=== PATIENT | female | born 1930 | race African-American/Black ===

== ENCOUNTER 2016-12-08 14:37 | Inpatient (IN) | payer MEDICARE, MEDICAID ==
[~2016-12-08] VITALS: Ht 167.6 cm; Wt 93.0 kg
[~2016-12-08 14:37] MED LIST: ASPI-1159 PO; ATOR10TA69 PO; DONE5TAB33 PO; FURO20TA4 PO; GABA-529 PO; HYDR-4133 PO; LEVO88TA7 PO; METO-385 PO; NITR100C11 PO; POTA10CA42 PO; TAMS0.4C31 PO
[2016-12-08] MEDS ORDERED: LEVOFLOXACIN 750MG PREMIX 150 ML IV ONE (15:15)
[2016-12-08 15:42] LABS: BASOPHILS % 0.2 % (0.0-2.0); EOSINOPHILS % 0.5 % (0.0-5.0); HEMATOCRIT. 36.8 % (36.0-48.0); HEMOGLOBIN. 12.7 g/dL (12.0-16.0); LYMPHOCYTES % 11.4 % (20.0-50.0); MEAN CORPUSCULAR HEMOGLOBIN 31.3 pg (28.0-32.0); MEAN CORPUSCULAR VOLUME 90.9 fL (81.0-99.0); MEAN PLATELET VOLUME 7.4 fl (7.4-10.4); MONOCYTES % 4.5 % (2.0-8.0); NEUTROPHILS % 83.4 % (40.0-76.0); PLATELET 236 x1000/uL (130-400); RED BLOOD CELL COUNT 4.05 mill/uL (4.2-5.4); RED CELL DISTRIBUTION WIDTH 14.9 % (11.6-14.6)
[2016-12-08 15:44] LABS: BG BASE EXCESS 4.9 mmol/L (-2.0-2.0); BG CARBOXYHEMOGLOBIN 0.8 % (0.5-1.5); BG DEOXYHEMOGLOBIN 1.9 % (0.0-5.0); BG FRACTION INSPIRED OXYGEN 32; BG METHEMOGLOBIN 0.2 % (0.0-1.5); BG OXYGEN SATURATION 98.1 % (92.0-98.5); BG OXYHEMOGLOBIN 97.1 % (94.0-97.0); BG PCO2 40.7 mmHg (35.0-45.0); BG PO2 115.1 mmHg (75.0-100.0); BG SAMPLE SITE RIGHT RADIAL; BG TOTAL HEMOGLOBIN 13.4 g/dL (12.0-18.0); BG VENT MODE NASAL CANNULA
[2016-12-08 15:46] LABS: INR 1.1; PROTHROMBIN TIME 10.9 sec
[2016-12-08 15:47] LABS: CHLORIDE 99 mEq/L (98-107)
[2016-12-08 15:52] LABS: CARBON DIOXIDE 31 mEq/L (21-32)
[2016-12-08 15:59] LABS: TROPONIN I < 0.02 ng/mL (0.00-0.04)
[2016-12-08 16:11] LABS: CLARITY URINE CLEAR (CLEAR); COLOR URINE YELLOW (YELLOW); KETONES URINE NEGATIVE (NEGATIVE); LEUKOCYTE ESTERASE URINE NEGATIVE (NEGATIVE); NITRITE URINE NEGATIVE (NEGATIVE); OCCULT BLOOD URINE NEGATIVE (NEGATIVE); PROTEIN URINE NEGATIVE (NEGATIVE); SPECIFIC GRAVITY URINE 1.014 (1.005-1.030); UROBILINOGEN URINE 0.2 E.U./dL (0.2-1.0)
[2016-12-08] MEDS ORDERED: FUROSEMIDE 40MG/4ML VIAL IVP ONE (18:45)
[2016-12-08] MEDS ORDERED: GUAIFENESIN 200MG/10ML SUGAR FREE UDC PO PRN (21:00)
[2016-12-08] MEDS ORDERED: IPRATROPIUM/ALBUTEROL 0.5-3(2.5)MG/3ML NEB INH PRN (21:00)
[2016-12-08] MEDS ORDERED: DOCUSATE SODIUM 100MG CAPSULE PO PRN (21:00)
[2016-12-08] MEDS ORDERED: ONDANSETRON HCL 4MG/2ML VIAL IV PRN (21:00)
[2016-12-08] MEDS ORDERED: ACETAMINOPHEN 650MG SUPP PR PRN (21:00)
[2016-12-09 07:28] LABS: CARBON DIOXIDE 33 mEq/L (21-32); CHLORIDE 100 mEq/L (98-107)
[2016-12-09 08:09] LABS: BASOPHILS % 0.3 % (0.0-2.0); EOSINOPHILS % 1.1 % (0.0-5.0); HEMATOCRIT. 37.5 % (36.0-48.0); HEMOGLOBIN. 12.7 g/dL (12.0-16.0); LYMPHOCYTES % 24.1 % (20.0-50.0); MEAN CORPUSCULAR HEMOGLOBIN 31.1 pg (28.0-32.0); MEAN CORPUSCULAR VOLUME 91.5 fL (81.0-99.0); MEAN PLATELET VOLUME 7.6 fl (7.4-10.4); MONOCYTES % 7.5 % (2.0-8.0); PLATELET 193 x1000/uL (130-400); RED CELL DISTRIBUTION WIDTH 14.9 % (11.6-14.6)
[2016-12-09 10:05] LABS: T4 FREE 1.37 ng/dL (0.76-1.46)
[2016-12-09] MEDS: POTASSIUM CHLORIDE 20MEQ TABLET SR PO SCH (10:48)
[2016-12-09] MEDS: FUROSEMIDE 20MG/2ML VIAL IVP SCH (10:48)
[2016-12-09] MEDS: DONEPEZIL HCL 5MG TABLET PO SCH (10:48)
[2016-12-09] MEDS: METOPROLOL TARTRATE 25MG TABLET PO SCH (10:49)
[2016-12-09] MEDS ORDERED: POTASSIUM CHLORIDE INJ 40 MEQ in DEXT 5% WATER 250 ML IV SCH (11:00)
[2016-12-09 15:47] LABS: CREATINE KINASE 129 IU/L (26-192); CREATINE KINASE MB FRACTION 0.6 ng/mL (0.5-3.6); TROPONIN I < 0.02 ng/mL (0.00-0.04)
[2016-12-09] MEDS: LEVOTHYROXINE SODIUM 88MCG TABLET PO SCH (15:48)
[2016-12-09] MEDS: HYDRALAZINE HCL 10MG TABLET PO SCH ×2 (15:49→21:35)
[2016-12-09] MEDS ORDERED: LEVOFLOXACIN 500MG PREMIX 100 ML IV SCH (21:00)
[2016-12-09] MEDS: LEVOFLOXACIN 500MG PREMIX 100 ML IV SCH (21:13)
[2016-12-09 23:09] LABS: CREATINE KINASE 130 IU/L (26-192); CREATINE KINASE MB FRACTION 1.2 ng/mL (0.5-3.6); TROPONIN I < 0.02 ng/mL (0.00-0.04)
[2016-12-10] MEDS: HYDRALAZINE HCL 10MG TABLET PO SCH ×3 (05:05→20:59)
[2016-12-10 06:25] LABS: CARBON DIOXIDE 30 mEq/L (21-32); CHLORIDE 102 mEq/L (98-107); CREATINE KINASE 128 IU/L (26-192); PHOSPHORUS 2.4 mg/dL (2.5-4.9)
[2016-12-10 06:27] LABS: CREATINE KINASE MB FRACTION 1.4 ng/mL (0.5-3.6); TROPONIN I < 0.02 ng/mL (0.00-0.04)
[2016-12-10 06:44] LABS: BASOPHILS % 0.3 % (0.0-2.0); EOSINOPHILS % 1.8 % (0.0-5.0); HEMATOCRIT. 35.3 % (36.0-48.0); HEMOGLOBIN. 12.1 g/dL (12.0-16.0); LYMPHOCYTES % 36.5 % (20.0-50.0); MEAN CORPUSCULAR HEMOGLOBIN 31.6 pg (28.0-32.0); MEAN CORPUSCULAR VOLUME 92.2 fL (81.0-99.0); MEAN PLATELET VOLUME 7.7 fl (7.4-10.4); MONOCYTES % 8.4 % (2.0-8.0); PLATELET 181 x1000/uL (130-400); RED BLOOD CELL COUNT 3.83 mill/uL (4.2-5.4); RED CELL DISTRIBUTION WIDTH 14.9 % (11.6-14.6)
[2016-12-10] MEDS ORDERED: SODIUM PHOS,M-BASIC-D-BASIC 10 MM in DEXT 5% WATER 246.6667 ML IV NR (09:00)
[2016-12-10] MEDS: FUROSEMIDE 20MG/2ML VIAL IVP SCH (09:01)
[2016-12-10] MEDS: DONEPEZIL HCL 5MG TABLET PO SCH (09:02)
[2016-12-10] MEDS: POTASSIUM CHLORIDE 20MEQ TABLET SR PO SCH (09:02)
[2016-12-10] MEDS: METOPROLOL TARTRATE 25MG TABLET PO SCH (09:02)
[2016-12-10] MEDS: LEVOTHYROXINE SODIUM 88MCG TABLET PO SCH (09:02)
[2016-12-10] MEDS: ENOXAPARIN 30MG/0.3ML SYR SUBCUT SCH (20:59)
[2016-12-10] MEDS: LEVOFLOXACIN 500MG PREMIX 100 ML IV SCH (21:00)
[2016-12-11] MEDS: LEVOTHYROXINE SODIUM 88MCG TABLET PO SCH (06:17)
[2016-12-11] MEDS: HYDRALAZINE HCL 10MG TABLET PO SCH ×2 (06:18→13:59)
[2016-12-11 06:34] LABS: BASOPHILS % 0.3 % (0.0-2.0); EOSINOPHILS % 1.4 % (0.0-5.0); HEMATOCRIT. 35.2 % (36.0-48.0); HEMOGLOBIN. 12.1 g/dL (12.0-16.0); LYMPHOCYTES % 45.4 % (20.0-50.0); MEAN CORPUSCULAR HEMOGLOBIN 31.4 pg (28.0-32.0); MEAN CORPUSCULAR VOLUME 91.1 fL (81.0-99.0); MEAN PLATELET VOLUME 7.1 fl (7.4-10.4); MONOCYTES % 6.5 % (2.0-8.0); NEUTROPHILS % 46.4 % (40.0-76.0); PLATELET 200 x1000/uL (130-400); RED BLOOD CELL COUNT 3.86 mill/uL (4.2-5.4); RED CELL DISTRIBUTION WIDTH 14.9 % (11.6-14.6)
[2016-12-11 07:35] LABS: CARBON DIOXIDE 30 mEq/L (21-32); CHLORIDE 101 mEq/L (98-107); PHOSPHORUS 2.7 mg/dL (2.5-4.9)
[2016-12-11] MEDS: METOPROLOL TARTRATE 25MG TABLET PO SCH (08:31)
[2016-12-11] MEDS: ENOXAPARIN 30MG/0.3ML SYR SUBCUT SCH (08:31)
[2016-12-11] MEDS: FUROSEMIDE 20MG/2ML VIAL IVP SCH (08:32)
[2016-12-11] MEDS: POTASSIUM CHLORIDE 20MEQ TABLET SR PO SCH (08:32)
[2016-12-11] MEDS: DONEPEZIL HCL 5MG TABLET PO SCH (08:32)
[2016-12-11 20:00] VITALS: BP 155/76
== END 2016-12-11 20:55 | DRG 291 ==
LOC: ER 14:43 → 8WST 19:53 → EDBEDREQ 20:10 → SUPCPDRO 20:51 → ENRESERV 22:35
PROVIDERS: ADMIT Internal Medicine Nephrology; ATTEND Internal Medicine Nephrology
DX: I11.0 Hypertensive heart disease with heart failure (principal); G92 Toxic encephalopathy; E87.2 Acidosis; R65.10 Systemic inflammatory response syndrome (SIRS) of non-infectious origin without acute organ dysfunction; F03.90 Unspecified dementia, unspecified severity, without behavioral disturbance, psychotic disturbance, mood disturbance, and anxiety; I48.91 Unspecified atrial fibrillation; E11.9 Type 2 diabetes mellitus without complications; E66.01 Morbid (severe) obesity due to excess calories; I50.33 Acute on chronic diastolic (congestive) heart failure; E87.6 Hypokalemia; E03.9 Hypothyroidism, unspecified; R32 Unspecified urinary incontinence; E78.00 Pure hypercholesterolemia, unspecified; E78.5 Hyperlipidemia, unspecified; Z79.899 Other long term (current) drug therapy; I69.320 Aphasia following cerebral infarction
CPT/HCPCS: 36415; 36600; 70450; 71010; 80048; 80053; 80061; 81003; 82375; 82550; 82553; 82805; 83036; 83605; 83735; 83880; 84100; 84439; 84443; 84484; 85025; 85379; 85610; 87040; 93005; 93306; 93970; 94640; 96365; 96375; 97162; 99291; J1650; J1940; J1956; J3480; J3490; J7050; J7060; J7620; A4315

== ENCOUNTER 2017-11-26 15:54 | Emergency (ER) | payer MEDICARE, MEDICAID ==
[~2017-11-26] VITALS: Ht 170.2 cm; Wt 80.0 kg
[2017-11-26 16:44] LABS: BASOPHILS % 0.6 % (0.0-2.0); EOSINOPHILS % 0.8 % (0.0-5.0); HEMATOCRIT. 34.3 % (36.0-48.0); HEMOGLOBIN. 12.1 g/dL (12.0-16.0); LYMPHOCYTES % 60.9 % (20.0-50.0); MEAN CORPUSCULAR HEMOGLOBIN 33.5 pg (28.0-32.0); MEAN CORPUSCULAR VOLUME 95.3 fL (81.0-99.0); MEAN PLATELET VOLUME 7.3 fl (7.4-10.4); MONOCYTES % 2.4 % (2.0-8.0); NEUTROPHILS % 35.3 % (40.0-76.0); PLATELET 175 x1000/uL (130-400); RED CELL DISTRIBUTION WIDTH 16.2 % (11.6-14.6)
[2017-11-26 16:51] LABS: CHLORIDE 106 mEq/L (98-107)
[2017-11-26 20:15] VITALS: BP 160/66
== END 2017-11-26 20:18 ==
LOC: ER 16:08
DX: R53.1 Weakness (principal); R63.0 Anorexia; I11.0 Hypertensive heart disease with heart failure; I50.9 Heart failure, unspecified; E78.00 Pure hypercholesterolemia, unspecified; E03.9 Hypothyroidism, unspecified; I48.91 Unspecified atrial fibrillation; F03.90 Unspecified dementia, unspecified severity, without behavioral disturbance, psychotic disturbance, mood disturbance, and anxiety; Z86.73 Personal history of transient ischemic attack (TIA), and cerebral infarction without residual deficits; Z79.82 Long term (current) use of aspirin
CPT/HCPCS: 36415; 71045; 72170; 80048; 83880; 85025; 99285

== ENCOUNTER 2018-04-29 10:47 | Inpatient (IN) | payer MEDICARE, MEDICAID ==
[~2018-04-29] VITALS: Ht 165.1 cm; Wt 84.4 kg
[~2018-04-29 10:47] MED LIST changes: +ASPI-1159 GT; -ASPI-1159 PO; +ATOR10TA69 GT; -ATOR10TA69 PO; +DONE5TAB33 GT; -DONE5TAB33 PO; +FURO20TA4 GT; -FURO20TA4 PO; +HYDR-4133 GT; -HYDR-4133 PO; +LEVO88TA7 GT; -LEVO88TA7 PO; +METO-385 GT; -METO-385 PO; +POTA10CA42 GT; -POTA10CA42 PO; +TAMS0.4C31 GT; -TAMS0.4C31 PO
[2018-04-29 11:41] LABS: BASOPHILS % 0.7 % (0.0-2.0); EOSINOPHILS % 0.7 % (0.0-5.0); HEMATOCRIT. 32.2 % (36.0-48.0); HEMOGLOBIN. 10.9 g/dL (12.0-16.0); LYMPHOCYTES % 27.3 % (20.0-50.0); MEAN CORPUSCULAR HEMOGLOBIN 31.8 pg (28.0-32.0); MEAN CORPUSCULAR VOLUME 93.6 fL (81.0-99.0); MEAN PLATELET VOLUME 7.3 fl (7.4-10.4); MONOCYTES % 4.2 % (2.0-8.0); NEUTROPHILS % 67.1 % (40.0-76.0); PLATELET 225 x1000/uL (130-400); RED BLOOD CELL COUNT 3.44 mill/uL (4.2-5.4); RED CELL DISTRIBUTION WIDTH 15.5 % (11.6-14.6)
[2018-04-29 11:48] LABS: CHLORIDE 98 mEq/L (98-107)
[2018-04-29 11:51] LABS: PROTHROMBIN TIME 10.1 sec (9.1-11.1)
[2018-04-29 14:25] LABS: CLARITY URINE CLOUDY (CLEAR); COLOR URINE YELLOW (YELLOW); KETONES URINE NEGATIVE (NEGATIVE); LEUKOCYTE ESTERASE URINE NEGATIVE (NEGATIVE); NITRITE URINE NEGATIVE (NEGATIVE); OCCULT BLOOD URINE 2+ (NEGATIVE); PROTEIN URINE NEGATIVE (NEGATIVE); SPECIFIC GRAVITY URINE 1.017 (1.005-1.030); UROBILINOGEN URINE 0.2 E.U./dL (0.2-1.0)
[2018-04-29 14:50] LABS: *BARBITURATES SCREEN URINE NEGATIVE (NEGATIVE); *BENZODIAZEPINES SCREEN URINE NEGATIVE (NEGATIVE)
[2018-04-29 14:52] LABS: *AMPHETAMINES SCREEN URINE NEGATIVE (NEGATIVE); *COCAINE SCREEN URINE NEGATIVE (NEGATIVE); CANNABINOID URINE SCREEN NEGATIVE (NEGATIVE); METHADONE URINE SCREEN NEGATIVE (NEGATIVE); OPIATES URINE SCREEN PRESUMTIVE POSITIVE (NEGATIVE); PHENCYCLIDINE URINE SCREEN NEGATIVE (NEGATIVE)
[2018-04-29] MEDS ORDERED: DIPHENHYDRAMINE 50MG/ML VIAL IV PRN (15:15)
[2018-04-29] MEDS ORDERED: ONDANSETRON HCL 4MG/2ML INJ IV PRN (15:15)
[2018-04-29] MEDS ORDERED: ACETAMINOPHEN 650MG SUPP PR PRN (15:15)
[2018-04-29] MEDS: DEXT 5%/0.45% NACL 1000ML 1,000 ML IV SCH (18:30)
[2018-04-29] MEDS ORDERED: LEVOFLOXACIN 500MG PREMIX 100 ML IV NR (20:00)
[2018-04-29 20:35] VITALS: BP 135/57
[2018-04-29 20:45] VITALS: BP 135/57
[2018-04-29] MEDS: ENOXAPARIN 40MG/0.4ML SYR SUBCUT SCH (23:13)
[2018-04-30] VITALS (9 sets, daily range): BP systolic 130–207; BP diastolic 55–92
[2018-04-30] MEDS ORDERED: MULT-1116 GT (05:53)
[2018-04-30] MEDS ORDERED: diclofenac sodium BOTHEYE (05:59)
[2018-04-30] MEDS ORDERED: vitamind3 GT (06:09)
[2018-04-30] MEDS ORDERED: vitaminD3 GT (06:11)
[2018-04-30 07:38] LABS: BG BASE EXCESS 8.2 mmol/L (-2.0-2.0); BG CARBOXYHEMOGLOBIN 0.5 % (0.5-1.5); BG DEOXYHEMOGLOBIN 2.6 % (0.0-5.0); BG METHEMOGLOBIN 0.2 % (0.0-1.5); BG OXYGEN SATURATION 97.4 % (92.0-98.5); BG OXYHEMOGLOBIN 96.7 % (94.0-97.0); BG PCO2 41.6 mmHg (35.0-45.0); BG PH 7.504 (7.350-7.450); BG PO2 104.2 mmHg (75.0-100.0); BG SAMPLE SITE RIGHT RADIAL; BG TOTAL HEMOGLOBIN 11.2 g/dL (12.0-18.0); BG VENT MODE NASAL CANNULA
[2018-04-30] MEDS ORDERED: HYDRALAZINE 20MG/ML VIAL IV SCH (08:45)
[2018-04-30] MEDS: LEVOTHYROXINE SODIUM 125MCG TABLET PO SCH (08:45)
[2018-04-30] MEDS: LISINOPRIL 20MG TABLET PO SCH (09:00)
[2018-04-30] MEDS ORDERED: POTASSIUM CHLORIDE 20MEQ/PACKET PO SCH (09:00)
[2018-04-30] MEDS: METOPROLOL TARTRATE 25MG TABLET PO SCH ×2 (09:00→21:37)
[2018-04-30] MEDS ORDERED: FUROSEMIDE 40MG/4ML VIAL IVP SCH (09:00)
[2018-04-30 10:30] LABS: T4 FREE 1.06 ng/dL (0.76-1.46)
[2018-04-30] MEDS ORDERED: HYDRALAZINE 20MG/ML VIAL IV PRN (12:00)
[2018-04-30] MEDS ORDERED: LIDOCAINE HCL/PF 1% 2ML VIAL ONE (14:09)
[2018-04-30] MEDS: HYDRALAZINE HCL 50MG TABLET PO SCH ×2 (14:21→21:37)
[2018-04-30] MEDS: DEXT 5%/0.45% NACL 1000ML 1,000 ML IV SCH (14:22)
[2018-04-30] MEDS: IPRATROPIUM/ALBUTEROL 0.5-3(2.5)MG/3ML NEB INH PRN (14:56)
[2018-04-30 16:23] LABS: CREATINE KINASE 53 IU/L (26-192)
[2018-04-30 16:24] LABS: CREATINE KINASE MB FRACTION < 1.0 ng/mL (0.5-3.6)
[2018-04-30 21:16] LABS: T4 FREE 1.14 ng/dL (0.76-1.46)
[2018-04-30 21:33] LABS: FOLIC ACID (FOLATE) SERUM >20 ng/mL ng/mL (>5.38)
[2018-04-30] MEDS: ENOXAPARIN 40MG/0.4ML SYR SUBCUT SCH (21:38)
[2018-04-30] MEDS: LEVOFLOXACIN 250MG PREMIX 50 ML IV SCH (21:38)
[2018-04-30] MEDS: ATORVASTATIN CALCIUM 20MG TABLET PO SCH (21:38)
[2018-04-30 21:45] LABS: VITAMIN B12 SERUM 1716 pg/mL (211-911)
[2018-04-30] MEDS: GUAIFENESIN-DM 200MG-20MG/10ML UDC PO PRN (21:49)
[2018-05-01] VITALS (12 sets, daily range): BP systolic 126–185; BP diastolic 33–80
[2018-05-01 00:36] LABS: CREATINE KINASE 82 IU/L (26-192)
[2018-05-01 00:37] LABS: CREATINE KINASE MB FRACTION < 1.0 ng/mL (0.5-3.6)
[2018-05-01] MEDS: GUAIFENESIN-DM 200MG-20MG/10ML UDC PO PRN ×5 (02:39→20:56)
[2018-05-01] MEDS: IPRATROPIUM/ALBUTEROL 0.5-3(2.5)MG/3ML NEB INH PRN ×2 (03:26→12:18)
[2018-05-01] MEDS: HYDRALAZINE HCL 50MG TABLET PO SCH ×3 (05:24→23:05)
[2018-05-01 05:53] LABS: BASOPHILS % 0.2 % (0.0-2.0); EOSINOPHILS % 0.5 % (0.0-5.0); HEMATOCRIT. 32.7 % (36.0-48.0); HEMOGLOBIN. 11.4 g/dL (12.0-16.0); LYMPHOCYTES % 23.8 % (20.0-50.0); MEAN CORPUSCULAR HEMOGLOBIN 32.4 pg (28.0-32.0); MEAN CORPUSCULAR VOLUME 93.4 fL (81.0-99.0); MEAN PLATELET VOLUME 7.5 fl (7.4-10.4); MONOCYTES % 3.9 % (2.0-8.0); NEUTROPHILS % 71.6 % (40.0-76.0); PLATELET 234 x1000/uL (130-400); RED CELL DISTRIBUTION WIDTH 15.6 % (11.6-14.6)
[2018-05-01] MEDS: LEVOTHYROXINE SODIUM 125MCG TABLET PO SCH (06:33)
[2018-05-01 07:07] LABS: CHLORIDE 98 mEq/L (98-107)
[2018-05-01 07:28] LABS: PHOSPHORUS 2.3 mg/dL (2.5-4.9)
[2018-05-01 07:31] LABS: CREATINE KINASE 66 IU/L (26-192)
[2018-05-01 07:34] LABS: CREATINE KINASE MB FRACTION < 1.0 ng/mL (0.5-3.6)
[2018-05-01] MEDS: DEXT 5%/0.45% NACL 1000ML 1,000 ML IV SCH (08:12)
[2018-05-01] MEDS: LISINOPRIL 20MG TABLET PO SCH (08:13)
[2018-05-01] MEDS: METOPROLOL TARTRATE 25MG TABLET PO SCH ×2 (08:13→20:33)
[2018-05-01] MEDS: POTASSIUM CHLORIDE 20MEQ/PACKET PO SCH (11:07)
[2018-05-01] MEDS: FUROSEMIDE 20MG TABLET PO SCH ×2 (11:07→20:32)
[2018-05-01] MEDS: LEVOFLOXACIN 250MG PREMIX 50 ML IV SCH (20:31)
[2018-05-01] MEDS: ATORVASTATIN CALCIUM 20MG TABLET PO SCH (20:33)
[2018-05-01] MEDS: ENOXAPARIN 40MG/0.4ML SYR SUBCUT SCH (20:34)
[2018-05-02] VITALS (12 sets, daily range): BP systolic 124–178; BP diastolic 56–113
[2018-05-02] MEDS: LEVOTHYROXINE SODIUM 125MCG TABLET PO SCH (05:58)
[2018-05-02] MEDS: HYDRALAZINE HCL 50MG TABLET PO SCH ×3 (05:58→21:05)
[2018-05-02] MEDS: GUAIFENESIN-DM 200MG-20MG/10ML UDC PO PRN ×3 (06:07→14:42)
[2018-05-02 07:41] LABS: BASOPHILS % 0.2 % (0.0-2.0); EOSINOPHILS % 1.2 % (0.0-5.0); HEMATOCRIT. 31.8 % (36.0-48.0); LYMPHOCYTES % 31.1 % (20.0-50.0); MEAN CORPUSCULAR HEMOGLOBIN 32.2 pg (28.0-32.0); MEAN CORPUSCULAR VOLUME 93.1 fL (81.0-99.0); MONOCYTES % 4.6 % (2.0-8.0); NEUTROPHILS % 62.9 % (40.0-76.0); RED BLOOD CELL COUNT 3.41 mill/uL (4.2-5.4); RED CELL DISTRIBUTION WIDTH 15.3 % (11.6-14.6)
[2018-05-02] MEDS: IPRATROPIUM/ALBUTEROL 0.5-3(2.5)MG/3ML NEB INH PRN ×3 (08:06→20:46)
[2018-05-02 08:12] LABS: CHLORIDE 102 mEq/L (98-107)
[2018-05-02 08:32] LABS: PHOSPHORUS 2.7 mg/dL (2.5-4.9)
[2018-05-02] MEDS: FUROSEMIDE 20MG TABLET PO SCH ×2 (09:04→21:05)
[2018-05-02] MEDS: LISINOPRIL 20MG TABLET PO SCH (09:04)
[2018-05-02] MEDS: METOPROLOL TARTRATE 25MG TABLET PO SCH ×2 (09:04→21:05)
[2018-05-02] MEDS: POTASSIUM CHLORIDE 20MEQ/PACKET PO SCH (09:05)
[2018-05-02 09:27] LABS: MEAN PLATELET VOLUME 7.9 fl (7.4-10.4); PLATELET 225 x1000/uL (130-400)
[2018-05-02] MEDS: NITROFURANTOIN 100MG M/M CAPSULE PO SCH ×2 (12:16→21:04)
[2018-05-02] MEDS: LACTULOSE 20G/30ML UDC PO SCH ×2 (13:27→21:04)
[2018-05-02 16:42] LABS: BG CARBOXYHEMOGLOBIN 0.3 % (0.5-1.5); BG DEOXYHEMOGLOBIN 4.2 % (0.0-5.0); BG FRACTION INSPIRED OXYGEN 21; BG HCO3 ACT 29.8 mmol/L (22.0-26.0); BG METHEMOGLOBIN 0.3 % (0.0-1.5); BG OXYGEN SATURATION 95.8 % (92.0-98.5); BG OXYHEMOGLOBIN 95.2 % (94.0-97.0); BG PO2 86.4 mmHg (75.0-100.0); BG SAMPLE SITE LEFT RADIAL; BG TOTAL HEMOGLOBIN 10.6 g/dL (12.0-18.0); BG VENT MODE ROOM AIR
[2018-05-02] MEDS ORDERED: AZITHROMYCIN 500 MG in DEXT 5% WATER 250 ML IV SCH (18:00)
[2018-05-02] MEDS: BUDESONIDE 0.5MG/2ML NEB HHN SCH (20:45)
[2018-05-02] MEDS: ENOXAPARIN 40MG/0.4ML SYR SUBCUT SCH (21:04)
[2018-05-02] MEDS: ATORVASTATIN CALCIUM 20MG TABLET PO SCH (21:05)
[2018-05-03] VITALS (10 sets, daily range): BP systolic 143–164; BP diastolic 67–83
[2018-05-03] MEDS: GUAIFENESIN-DM 200MG-20MG/10ML UDC PO PRN (04:57)
[2018-05-03] MEDS: LACTULOSE 20G/30ML UDC PO SCH (05:14)
[2018-05-03] MEDS: HYDRALAZINE HCL 50MG TABLET PO SCH ×2 (05:15→14:04)
[2018-05-03] MEDS: LEVOTHYROXINE SODIUM 125MCG TABLET PO SCH (06:30)
[2018-05-03 06:50] LABS: BASOPHILS % 0.2 % (0.0-2.0); EOSINOPHILS % 2.2 % (0.0-5.0); HEMATOCRIT. 32.1 % (36.0-48.0); LYMPHOCYTES % 35.1 % (20.0-50.0); MEAN CORPUSCULAR HEMOGLOBIN 31.9 pg (28.0-32.0); MEAN CORPUSCULAR VOLUME 93.4 fL (81.0-99.0); MEAN PLATELET VOLUME 7.5 fl (7.4-10.4); MONOCYTES % 4.4 % (2.0-8.0); NEUTROPHILS % 58.1 % (40.0-76.0); PLATELET 258 x1000/uL (130-400); RED BLOOD CELL COUNT 3.44 mill/uL (4.2-5.4); RED CELL DISTRIBUTION WIDTH 15.4 % (11.6-14.6)
[2018-05-03 07:27] LABS: CHLORIDE 102 mEq/L (98-107)
[2018-05-03 07:32] LABS: PHOSPHORUS 2.8 mg/dL (2.5-4.9)
[2018-05-03] MEDS: NITROFURANTOIN 100MG M/M CAPSULE PO SCH (08:57)
[2018-05-03] MEDS: METOPROLOL TARTRATE 25MG TABLET PO SCH (08:57)
[2018-05-03] MEDS: LISINOPRIL 20MG TABLET PO SCH (08:57)
[2018-05-03] MEDS: FUROSEMIDE 20MG TABLET PO SCH (08:57)
[2018-05-03] MEDS: POTASSIUM CHLORIDE 20MEQ/PACKET PO SCH (08:58)
[2018-05-03] MEDS: BUDESONIDE 0.5MG/2ML NEB HHN SCH (09:21)
[2018-05-03] MEDS: IPRATROPIUM/ALBUTEROL 0.5-3(2.5)MG/3ML NEB INH PRN (09:22)
[2018-05-03] MEDS ORDERED: FLUTICASONE PROPIONATE 50MCG/SPRAY BOTTLE BOTHNSTRLS SCH (21:00)
== END 2018-05-03 15:30 | DRG 871 ==
LOC: ER 10:47 → EDBEDREQ 13:17 → ENRESERV 15:40 → 5WST 18:10 → 5EST 04-30 13:25
PROVIDERS: ADMIT Internal Medicine Nephrology; ATTEND Internal Medicine Nephrology
DX: A41.9 Sepsis, unspecified organism (principal); J96.00 Acute respiratory failure, unspecified whether with hypoxia or hypercapnia; G92 Toxic encephalopathy; N39.0 Urinary tract infection, site not specified; I69.351 Hemiplegia and hemiparesis following cerebral infarction affecting right dominant side; R09.1 Pleurisy; I11.0 Hypertensive heart disease with heart failure; I50.9 Heart failure, unspecified; J40 Bronchitis, not specified as acute or chronic; B96.20 Unspecified Escherichia coli [E. coli] as the cause of diseases classified elsewhere; D64.9 Anemia, unspecified; E03.9 Hypothyroidism, unspecified; E11.9 Type 2 diabetes mellitus without complications; E66.01 Morbid (severe) obesity due to excess calories; Z68.31 Body mass index [BMI] 31.0-31.9, adult; E78.00 Pure hypercholesterolemia, unspecified; E78.5 Hyperlipidemia, unspecified; F03.90 Unspecified dementia, unspecified severity, without behavioral disturbance, psychotic disturbance, mood disturbance, and anxiety; I25.10 Atherosclerotic heart disease of native coronary artery without angina pectoris; I48.91 Unspecified atrial fibrillation; I69.320 Aphasia following cerebral infarction; Z79.899 Other long term (current) drug therapy
CPT/HCPCS: 36415; 36600; 70551; 71045; 80048; 80061; 80305; 82140; 82375; 82550; 82553; 82607; 82746; 82805; 83036; 83605; 83735; 83880; 84100; 84439; 84443; 84481; 84484; 85379; 87077; 87186; 93005; 93308; 93970; 96365; 96375; 97162; 99285; A6261; J0360; J0456; J1200; J1650; J1940; J1956; J3490; J7050; J7060; J7620; J7626; A4315

== ENCOUNTER 2018-08-11 16:33 | Inpatient (IN) | payer MEDICAID, MEDICARE ==
[~2018-08-11] VITALS: Ht 167.6 cm; Wt 96.2 kg
[~2018-08-11 16:33] MED LIST changes: -GABA-529 PO; +MULT-1116 GT; -NITR100C11 PO; +diclofenac sodium BOTHEYE; +vitaminD3 GT; +vitamind3 GT
[2018-08-11] MEDS ORDERED: SODIUM CHLORIDE 0.9% 1,000 ML IV ONE ×2 (17:46→19:01)
[2018-08-11 18:36] LABS: BASOPHILS % 0.3 % (0.0-2.0); EOSINOPHILS % 0.3 % (0.0-5.0); HEMATOCRIT. 35.6 % (36.0-48.0); HEMOGLOBIN. 12.1 g/dL (12.0-16.0); LYMPHOCYTES % 32.8 % (20.0-50.0); MEAN CORPUSCULAR HEMOGLOBIN 32.8 pg (28.0-32.0); MEAN CORPUSCULAR VOLUME 96.3 fL (81.0-99.0); MEAN PLATELET VOLUME 7.7 fl (7.4-10.4); NEUTROPHILS % 61.6 % (40.0-76.0); PLATELET 201 x1000/uL (130-400); RED CELL DISTRIBUTION WIDTH 16.5 % (11.6-14.6)
[2018-08-11 18:41] LABS: CHLORIDE 100 mEq/L (98-107)
[2018-08-11 18:44] LABS: INR 1.1; PROTHROMBIN TIME 10.7 sec (9.1-11.1)
[2018-08-11] MEDS ORDERED: PIPERACILLIN/TAZ 3.375G PREMIX 50 ML IV ONE (19:15)
[2018-08-11] MEDS ORDERED: VANCOMYCIN 1 G PREMIX 200 ML IV ONE (19:15)
[2018-08-11] MEDS ORDERED: ACETAMINOPHEN 650MG SUPP PR ONE (20:00)
[2018-08-11] MEDS ORDERED: ZOLPIDEM TARTRATE 5MG TABLET PO PRN (20:45)
[2018-08-11] MEDS ORDERED: MAGNESIUM/ALUMINUM HYDROXIDE/SIMETHICONE 30ML UDC PO PRN (20:45)
[2018-08-11] MEDS ORDERED: ACETAMINOPHEN 325MG TABLET PO PRN (20:45)
[2018-08-11] MEDS ORDERED: NA PHOS,M-B/NA PHOS,DI-BA ENEMA 118ML PR PRN (20:45)
[2018-08-11] MEDS ORDERED: NITROGLYCERIN 0.4MG TABLET SL SL PRN (20:45)
[2018-08-11] MEDS ORDERED: ONDANSETRON HCL 4MG/2ML INJ IV PRN (20:45)
[2018-08-11] MEDS ORDERED: ENOXAPARIN 40MG/0.4ML SYR SUBCUT SCH (20:45)
[2018-08-11] MEDS ORDERED: IPRATROPIUM/ALBUTEROL 0.5-3(2.5)MG/3ML NEB INH PRN (20:45)
[2018-08-11] MEDS ORDERED: GUAIFENESIN 200MG/10ML SUGAR FREE UDC PO PRN (20:45)
[2018-08-11] MEDS ORDERED: DOCUSATE SODIUM 100MG CAPSULE PO PRN (20:45)
[2018-08-11 20:47] LABS: CLARITY URINE CLEAR (CLEAR); COLOR URINE YELLOW (YELLOW); KETONES URINE NEGATIVE (NEGATIVE); LEUKOCYTE ESTERASE URINE NEGATIVE (NEGATIVE); NITRITE URINE NEGATIVE (NEGATIVE); OCCULT BLOOD URINE NEGATIVE (NEGATIVE); PH URINE 6.5 (4.5-8.0); PROTEIN URINE NEGATIVE (NEGATIVE); SPECIFIC GRAVITY URINE 1.029 (1.005-1.030); UROBILINOGEN URINE 0.2 E.U./dL (0.2-1.0)
[2018-08-11 21:20] LABS: T4 FREE 1.13 ng/dL (0.76-1.46)
[2018-08-11 21:40] VITALS: BP 148/67
[2018-08-11 21:43] VITALS: BP 148/67
[2018-08-11 22:00] VITALS: BP 160/69
[2018-08-11 23:00] VITALS: BP 146/66
[2018-08-11] MEDS: GUAIFENESIN/DM 600MG/30MG ER TAB 12HR PO SCH (23:40)
[2018-08-11] MEDS: SODIUM CHLORIDE 0.9% 1,000 ML IV SCH (23:41)
[2018-08-11] MEDS: FAMOTIDINE 20MG TABLET PO SCH (23:41)
[2018-08-11] MEDS: ASCORBIC ACID 500 MG TABLET PO SCH (23:44)
[2018-08-11] MEDS: DILTIAZEM HCL 60MG TABLET PO SCH (23:44)
[2018-08-12] VITALS (16 sets, daily range): BP systolic 107–168; BP diastolic 55–89
[2018-08-12 01:23] LABS: CREATINE KINASE 175 IU/L (26-192)
[2018-08-12 01:24] LABS: CREATINE KINASE MB FRACTION 1.4 ng/mL (0.5-3.6)
[2018-08-12] MEDS: PIPERACILLIN/TAZ 3.375G PREMIX 50 ML IV SCH ×3 (04:00→18:31)
[2018-08-12] MEDS ORDERED: VANCOMYCIN 1500MG in DEXTROSE 5% WATER 250ML IV SCH (06:00)
[2018-08-12] MEDS: DILTIAZEM HCL 60MG TABLET PO SCH ×4 (06:20→18:36)
[2018-08-12 06:56] LABS: CHLORIDE 102 mEq/L (98-107)
[2018-08-12 07:05] LABS: BASOPHILS % 0.3 % (0.0-2.0); EOSINOPHILS % 1.9 % (0.0-5.0); HEMATOCRIT. 30.1 % (36.0-48.0); HEMOGLOBIN. 10.4 g/dL (12.0-16.0); LYMPHOCYTES % 35.8 % (20.0-50.0); MEAN CORPUSCULAR HEMOGLOBIN 32.8 pg (28.0-32.0); MEAN CORPUSCULAR VOLUME 94.9 fL (81.0-99.0); MEAN PLATELET VOLUME 7.7 fl (7.4-10.4); MONOCYTES % 4.8 % (2.0-8.0); NEUTROPHILS % 57.2 % (40.0-76.0); PLATELET 195 x1000/uL (130-400); RED BLOOD CELL COUNT 3.17 mill/uL (4.2-5.4); RED CELL DISTRIBUTION WIDTH 16.3 % (11.6-14.6)
[2018-08-12 07:09] LABS: CREATINE KINASE 152 IU/L (26-192); CREATINE KINASE MB FRACTION 1.6 ng/mL (0.5-3.6)
[2018-08-12] MEDS: ASCORBIC ACID 500 MG TABLET PO SCH ×2 (09:02→21:00)
[2018-08-12] MEDS: ENOXAPARIN 30MG/0.3ML SYR SUBCUT SCH ×2 (09:02→21:00)
[2018-08-12] MEDS: FAMOTIDINE 20MG TABLET PO SCH ×2 (09:03→21:00)
[2018-08-12] MEDS: GUAIFENESIN/DM 600MG/30MG ER TAB 12HR PO SCH ×2 (09:03→21:00)
[2018-08-12] MEDS: LEVOTHYROXINE SODIUM 88MCG TABLET PO SCH (09:03)
[2018-08-12] MEDS: ZINC SULFATE 220 MG ( 50 ) CAPSULE PO SCH (09:08)
[2018-08-12] MEDS: ASPIRIN 325MG EC TABLET PO SCH (09:08)
[2018-08-12] MEDS ORDERED: INFLUENZA VIRUS VACCINE(AFLURIA) 0.5ML SYR IM ONE (12:00)
[2018-08-12] MEDS: SODIUM CHLORIDE 0.9% 1,000 ML IV SCH (18:45)
[2018-08-13] VITALS (8 sets, daily range): BP systolic 123–161; BP diastolic 57–77
[2018-08-13] MEDS: SODIUM CHLORIDE 0.9% 1,000 ML IV SCH ×3 (01:49→14:17)
[2018-08-13] MEDS: PIPERACILLIN/TAZ 3.375G PREMIX 50 ML IV SCH ×5 (06:52→23:13)
[2018-08-13] MEDS: LEVOTHYROXINE SODIUM 88MCG TABLET PO SCH (06:52)
[2018-08-13] MEDS: DILTIAZEM HCL 60MG TABLET PO SCH ×5 (06:52→23:14)
[2018-08-13] MEDS: DICLOFENAC SODIUM 0.1% OPHTH 2.5 ML BOTTLE BOTHEYE SCH ×2 (09:30→17:25)
[2018-08-13] MEDS: ASPIRIN 325MG EC TABLET PO SCH (10:57)
[2018-08-13] MEDS: GUAIFENESIN/DM 600MG/30MG ER TAB 12HR PO SCH ×2 (10:57→22:43)
[2018-08-13] MEDS: ZINC SULFATE 220 MG ( 50 ) CAPSULE PO SCH (10:58)
[2018-08-13] MEDS: ENOXAPARIN 30MG/0.3ML SYR SUBCUT SCH ×2 (10:58→22:43)
[2018-08-13] MEDS: FAMOTIDINE 20MG TABLET PO SCH ×2 (10:58→22:43)
[2018-08-13] MEDS: ASCORBIC ACID 500 MG TABLET PO SCH ×2 (10:58→22:43)
[2018-08-13] MEDS: VANCOMYCIN 750 MG PREMIX 150 ML IV SCH ×2 (17:20)
[2018-08-14] VITALS: BP 142/56
[2018-08-14] MEDS: TRAMADOL 50MG TABLET PO PRN (02:37)
[2018-08-14] MEDS: DILTIAZEM HCL 60MG TABLET PO SCH ×4 (05:24→23:51)
[2018-08-14] MEDS: PIPERACILLIN/TAZ 3.375G PREMIX 50 ML IV SCH ×4 (05:24→23:51)
[2018-08-14] MEDS: SODIUM CHLORIDE 0.9% 1,000 ML IV SCH ×3 (05:27→23:52)
[2018-08-14] MEDS: LEVOTHYROXINE SODIUM 88MCG TABLET PO SCH (06:44)
[2018-08-14 07:50] LABS: BASOPHILS % 0.3 % (0.0-2.0); EOSINOPHILS % 2.3 % (0.0-5.0); HEMATOCRIT. 30.1 % (36.0-48.0); HEMOGLOBIN. 10.4 g/dL (12.0-16.0); LYMPHOCYTES % 28.5 % (20.0-50.0); MEAN CORPUSCULAR VOLUME 95.6 fL (81.0-99.0); MEAN PLATELET VOLUME 7.4 fl (7.4-10.4); MONOCYTES % 4.8 % (2.0-8.0); NEUTROPHILS % 64.1 % (40.0-76.0); PLATELET 201 x1000/uL (130-400); RED BLOOD CELL COUNT 3.15 mill/uL (4.2-5.4); RED CELL DISTRIBUTION WIDTH 16.5 % (11.6-14.6)
[2018-08-14 08:00] VITALS: BP 152/68
[2018-08-14 08:00] LABS: CHLORIDE 105 mEq/L (98-107)
[2018-08-14 12:00] VITALS: BP 161/80
[2018-08-14] MEDS: ENOXAPARIN 30MG/0.3ML SYR SUBCUT SCH ×2 (12:29→20:44)
[2018-08-14] MEDS: FAMOTIDINE 20MG TABLET PO SCH (12:30)
[2018-08-14] MEDS: ASPIRIN 325MG EC TABLET PO SCH (12:30)
[2018-08-14] MEDS: DICLOFENAC SODIUM 0.1% OPHTH 2.5 ML BOTTLE BOTHEYE SCH ×2 (12:30→16:04)
[2018-08-14] MEDS: ASCORBIC ACID 500 MG TABLET PO SCH ×2 (12:31→20:42)
[2018-08-14] MEDS: GUAIFENESIN/DM 600MG/30MG ER TAB 12HR PO SCH ×2 (12:31→20:42)
[2018-08-14] MEDS: ZINC SULFATE 220 MG ( 50 ) CAPSULE PO SCH (12:31)
[2018-08-14] MEDS: VANCOMYCIN 750 MG PREMIX 150 ML IV SCH ×2 (12:57→23:51)
[2018-08-14] MEDS: ASPIRIN 325MG TABLET PO SCH (13:00)
[2018-08-14] MEDS ORDERED: POTASSIUM CHLORIDE 20MEQ/PACKET PO NR (13:45)
[2018-08-14 16:00] VITALS: BP 143/66
[2018-08-14 20:00] VITALS: BP 145/85
[2018-08-14 22:00] VITALS: BP 156/79
[2018-08-15] VITALS: BP 177/79
[2018-08-15] MEDS: TRAMADOL 50MG TABLET PO PRN (02:44)
[2018-08-15] MEDS: CLONIDINE 0.1MG TABLET PO PRN ×2 (03:22→15:30)
[2018-08-15 04:15] VITALS: BP 163/72
[2018-08-15] MEDS: PIPERACILLIN/TAZ 3.375G PREMIX 50 ML IV SCH (05:12)
[2018-08-15] MEDS: DILTIAZEM HCL 60MG TABLET PO SCH ×2 (05:13→13:01)
[2018-08-15] MEDS: LEVOTHYROXINE SODIUM 88MCG TABLET PO SCH (05:13)
[2018-08-15 07:00] VITALS: BP 158/75
[2018-08-15] MEDS: ASPIRIN 325MG TABLET PO SCH (09:00)
[2018-08-15] MEDS ORDERED: FAMOTIDINE 20MG TABLET PO SCH (09:00)
[2018-08-15] MEDS: ENOXAPARIN 30MG/0.3ML SYR SUBCUT SCH (10:08)
[2018-08-15] MEDS: ZINC SULFATE 220 MG ( 50 ) CAPSULE PO SCH (10:08)
[2018-08-15] MEDS: ASCORBIC ACID 500 MG TABLET PO SCH (10:08)
[2018-08-15] MEDS: GUAIFENESIN/DM 600MG/30MG ER TAB 12HR PO SCH (10:08)
[2018-08-15] MEDS: DICLOFENAC SODIUM 0.1% OPHTH 2.5 ML BOTTLE BOTHEYE SCH (10:09)
[2018-08-15] MEDS: VANCOMYCIN 750 MG PREMIX 150 ML IV SCH (10:54)
[2018-08-15 11:51] VITALS: BP 119/73
[2018-08-15] MEDS ORDERED: LEVOFLOXACIN 250MG TABLET PO SCH (13:00)
[2018-08-15 13:38] VITALS: BP 162/76
[2018-08-16] MEDS ORDERED: LEVOFLOXACIN 250MG TABLET PO SCH (11:00)
== END 2018-08-15 15:54 | DRG 871 ==
LOC: ER 16:33 → 5EST 20:23 → EDBEDREQTM 20:24 → EDBEDREQ 20:24 → ENRESERV 20:48 → 5EST 08-12 00:18
PROVIDERS: ADMIT Internal Medicine; ATTEND Internal Medicine
DX: A41.9 Sepsis, unspecified organism (principal); G92 Toxic encephalopathy; J18.9 Pneumonia, unspecified organism; E44.1 Mild protein-calorie malnutrition; E03.9 Hypothyroidism, unspecified; E66.9 Obesity, unspecified; Y95 Nosocomial condition; R65.20 Severe sepsis without septic shock; I50.9 Heart failure, unspecified; I11.0 Hypertensive heart disease with heart failure; I48.91 Unspecified atrial fibrillation; I25.10 Atherosclerotic heart disease of native coronary artery without angina pectoris; F03.90 Unspecified dementia, unspecified severity, without behavioral disturbance, psychotic disturbance, mood disturbance, and anxiety; Z86.73 Personal history of transient ischemic attack (TIA), and cerebral infarction without residual deficits; Z68.34 Body mass index [BMI] 34.0-34.9, adult; Z79.899 Other long term (current) drug therapy; Z79.82 Long term (current) use of aspirin
CPT/HCPCS: 36415; 71045; 80048; 80061; 80202; 82550; 82553; 83036; 83605; 83880; 84145; 84439; 84443; 84484; 93005; 93306; 93970; 96374; 99285; J1650; J2543; J3370; J7030; J7060

== ENCOUNTER 2019-05-16 11:57 | Inpatient (IN) | payer MEDICARE, MEDICAID ==
[~2019-05-16] VITALS: Ht 153.7 cm; Wt 99.8 kg
[~2019-05-16 11:57] MED LIST changes: -ASPI-1159 GT; +ASPI-1497 GT
[2019-05-16 13:32] LABS: PROTHROMBIN TIME 10.6 sec (9.6-11.0)
[2019-05-16 13:34] LABS: CHLORIDE 98 mEq/L (98-107)
[2019-05-16 14:07] LABS: CLARITY URINE CLOUDY (CLEAR); COLOR URINE YELLOW (YELLOW); KETONES URINE NEGATIVE (NEGATIVE); LEUKOCYTE ESTERASE URINE NEGATIVE (NEGATIVE); NITRITE URINE NEGATIVE (NEGATIVE); OCCULT BLOOD URINE NEGATIVE (NEGATIVE); PH URINE 8.5 (4.5-8.0); PROTEIN URINE NEGATIVE (NEGATIVE); SPECIFIC GRAVITY URINE 1.013 (1.005-1.030); UROBILINOGEN URINE 0.2 E.U./dL (0.2-1.0)
[2019-05-16 14:50] LABS: BASOPHILS % 0.6 % (0.0-2.0); EOSINOPHILS % 0.6 % (0.0-5.0); HEMATOCRIT. 36.9 % (36.0-48.0); HEMOGLOBIN. 12.8 g/dL (12.0-16.0); LYMPHOCYTES % 38.1 % (20.0-50.0); MEAN CORPUSCULAR HEMOGLOBIN 33.4 pg (28.0-32.0); NEUTROPHILS % 55.7 % (40.0-76.0); PLATELET 229 x1000/uL (130-400); RED BLOOD CELL COUNT 3.84 mill/uL (4.2-5.4)
[2019-05-16] MEDS ORDERED: ENOXAPARIN 40MG/0.4ML SYR SUBCUT SCH (15:30)
[2019-05-16] MEDS ORDERED: ACETAMINOPHEN 650MG/20.3ML UDC GT PRN (15:30)
[2019-05-16] MEDS ORDERED: ONDANSETRON HCL 4MG/2ML INJ IV PRN (15:30)
[2019-05-16 18:35] VITALS: BP 147/73
[2019-05-16 19:43] VITALS: BP 144/73
[2019-05-16 20:00] VITALS: BP 150/63
[2019-05-16] MEDS ORDERED: CEFTRIAXONE 1 G PREMIX 50 ML IV SCH (20:00)
[2019-05-16] MEDS: HYDRALAZINE HCL 10MG TABLET PO SCH (21:16)
[2019-05-16] MEDS: METOPROLOL TARTRATE 25MG TABLET PO SCH (21:17)
[2019-05-16] MEDS: ENOXAPARIN 30MG/0.3ML SYR SUBCUT SCH (21:18)
[2019-05-16] MEDS: CLONIDINE 0.1MG TABLET PO PRN (23:54)
[2019-05-17] VITALS: BP 181/64
[2019-05-17 04:00] VITALS: BP_SYST 102; BP_SYST 150; BP_DIAS 55; BP_DIAS 61
[2019-05-17 07:15] LABS: BASOPHILS % 0.3 % (0.0-2.0); EOSINOPHILS % 1.2 % (0.0-5.0); HEMATOCRIT. 34.7 % (36.0-48.0); HEMOGLOBIN. 12.1 g/dL (12.0-16.0); LYMPHOCYTES % 46.7 % (20.0-50.0); MEAN CORPUSCULAR HEMOGLOBIN 33.7 pg (28.0-32.0); MEAN CORPUSCULAR VOLUME 96.5 fL (81.0-99.0); MEAN PLATELET VOLUME 7.3 fl (7.4-10.4); MONOCYTES % 3.8 % (2.0-8.0); PLATELET 223 x1000/uL (130-400); RED CELL DISTRIBUTION WIDTH 15.6 % (11.6-14.6)
[2019-05-17] MEDS: LEVOTHYROXINE SODIUM 125MCG TABLET PO SCH (07:19)
[2019-05-17 07:33] LABS: CHLORIDE 100 mEq/L (98-107)
[2019-05-17 07:41] LABS: LDL CHOLESTEROL 146 mg/dL (5-100)
[2019-05-17 07:44] LABS: HDL CHOLESTEROL 43 mg/dL (40-59)
[2019-05-17 08:00] VITALS: BP 163/76
[2019-05-17] MEDS: FUROSEMIDE 40MG/4ML VIAL IV SCH (09:00)
[2019-05-17] MEDS: HYDRALAZINE HCL 10MG TABLET PO SCH ×2 (09:00→23:03)
[2019-05-17] MEDS: DONEPEZIL HCL 5MG TABLET PO SCH (09:00)
[2019-05-17] MEDS: ENOXAPARIN 30MG/0.3ML SYR SUBCUT SCH ×2 (09:00→23:04)
[2019-05-17] MEDS: POTASSIUM CHLORIDE 20MEQ/PACKET PO SCH (09:00)
[2019-05-17] MEDS: METOPROLOL TARTRATE 25MG TABLET PO SCH ×2 (09:00→23:02)
[2019-05-17 12:00] VITALS: BP 163/79
[2019-05-17 16:00] VITALS: BP 120/54
[2019-05-17 20:00] VITALS: BP 178/58
[2019-05-17] MEDS ORDERED: ATORVASTATIN CALCIUM 20MG TABLET PO SCH (21:00)
[2019-05-17] MEDS ORDERED: CEFTRIAXONE 1 G PREMIX 50 ML IV NR (23:00)
[2019-05-18] VITALS: BP 144/75
[2019-05-18 04:00] VITALS: BP 134/66
[2019-05-18 06:17] LABS: CHLORIDE 102 mEq/L (98-107)
[2019-05-18] MEDS: LEVOTHYROXINE SODIUM 125MCG TABLET PO SCH (06:28)
[2019-05-18 08:00] VITALS: BP 149/79
[2019-05-18] MEDS: POTASSIUM CHLORIDE 20MEQ/PACKET PO SCH (09:31)
[2019-05-18] MEDS: ENOXAPARIN 30MG/0.3ML SYR SUBCUT SCH ×2 (09:31→20:05)
[2019-05-18] MEDS: HYDRALAZINE HCL 10MG TABLET PO SCH ×2 (09:32→21:33)
[2019-05-18] MEDS: FUROSEMIDE 40MG/4ML VIAL IV SCH (09:32)
[2019-05-18] MEDS: DONEPEZIL HCL 5MG TABLET PO SCH (09:33)
[2019-05-18] MEDS: METOPROLOL TARTRATE 25MG TABLET PO SCH ×2 (09:33→21:33)
[2019-05-18 10:14] LABS: BASOPHILS % 0.5 % (0.0-2.0); EOSINOPHILS % 1.1 % (0.0-5.0); HEMATOCRIT. 35.2 % (36.0-48.0); HEMOGLOBIN. 12.1 g/dL (12.0-16.0); LYMPHOCYTES % 46.9 % (20.0-50.0); MEAN CORPUSCULAR VOLUME 96.1 fL (81.0-99.0); MONOCYTES % 4.1 % (2.0-8.0); NEUTROPHILS % 47.4 % (40.0-76.0); PLATELET 222 x1000/uL (130-400); RED BLOOD CELL COUNT 3.67 mill/uL (4.2-5.4); RED CELL DISTRIBUTION WIDTH 15.4 % (11.6-14.6)
[2019-05-18 12:00] VITALS: BP 160/88
[2019-05-18] MEDS: CLONIDINE 0.1MG TABLET PO PRN (12:32)
[2019-05-18 16:00] VITALS: BP 136/65
[2019-05-18 20:00] VITALS: BP 137/58
[2019-05-18] MEDS: CEFTRIAXONE 1 G PREMIX 50 ML IV SCH (20:04)
[2019-05-18] MEDS ORDERED: ATORVASTATIN CALCIUM 20MG TABLET PO SCH (21:00)
[2019-05-19] VITALS: BP 167/67
[2019-05-19] MEDS: CLONIDINE 0.1MG TABLET PO PRN ×2 (00:50→12:00)
[2019-05-19 04:00] VITALS: BP 136/56
[2019-05-19] MEDS: LEVOTHYROXINE SODIUM 125MCG TABLET PO SCH (06:23)
[2019-05-19 08:00] VITALS: BP 150/80
[2019-05-19] MEDS: POTASSIUM CHLORIDE 20MEQ/PACKET PO SCH (08:48)
[2019-05-19] MEDS: DONEPEZIL HCL 5MG TABLET PO SCH (08:49)
[2019-05-19] MEDS: FUROSEMIDE 40MG/4ML VIAL IV SCH (08:49)
[2019-05-19] MEDS: HYDRALAZINE HCL 10MG TABLET PO SCH (08:49)
[2019-05-19] MEDS: METOPROLOL TARTRATE 25MG TABLET PO SCH (08:50)
[2019-05-19] MEDS: ENOXAPARIN 30MG/0.3ML SYR SUBCUT SCH ×2 (08:51→21:02)
[2019-05-19 12:00] VITALS: BP 174/70
[2019-05-19 16:00] VITALS: BP 147/64
[2019-05-19 20:00] VITALS: BP 130/52
[2019-05-19] MEDS: CEFTRIAXONE 1 G PREMIX 50 ML IV SCH (20:58)
[2019-05-19] MEDS ORDERED: ATORVASTATIN CALCIUM 40MG TABLET PO SCH (21:00)
[2019-05-19] MEDS: METOPROLOL TARTRATE 50MG TABLET PO SCH (21:01)
[2019-05-19] MEDS: HYDRALAZINE HCL 50MG TABLET PO SCH (23:33)
[2019-05-20] VITALS: BP 130/60
[2019-05-20 04:00] VITALS: BP 138/69
[2019-05-20] MEDS: HYDRALAZINE HCL 50MG TABLET PO SCH ×2 (06:17→13:33)
[2019-05-20] MEDS: LEVOTHYROXINE SODIUM 125MCG TABLET PO SCH (06:20)
[2019-05-20 08:00] VITALS: BP 146/78
[2019-05-20] MEDS: FUROSEMIDE 40MG/4ML VIAL IV SCH (08:12)
[2019-05-20] MEDS: DONEPEZIL HCL 5MG TABLET PO SCH (08:25)
[2019-05-20] MEDS: POTASSIUM CHLORIDE 20MEQ/PACKET PO SCH (08:25)
[2019-05-20] MEDS: METOPROLOL TARTRATE 50MG TABLET PO SCH (08:26)
[2019-05-20] MEDS: ENOXAPARIN 30MG/0.3ML SYR SUBCUT SCH (08:27)
[2019-05-20 12:00] VITALS: BP 157/77
[2019-05-20] MEDS: CLONIDINE 0.1MG TABLET PO PRN (15:58)
[2019-05-20 16:02] VITALS: BP 157/71
[2019-05-20 16:36] VITALS: BP 157/71
[2019-05-21] MEDS ORDERED: FUROSEMIDE 40MG TABLET PO SCH (09:00)
== END 2019-05-20 16:20 | DRG 292 ==
LOC: ER 11:57 → 6EST 15:20 → EDBEDREQSVC 15:23 → EDBEDREQ 15:23 → ENRESERV 16:50
PROVIDERS: ADMIT Internal Medicine Nephrology; ATTEND Internal Medicine Nephrology
DX: I11.0 Hypertensive heart disease with heart failure (principal); E44.0 Moderate protein-calorie malnutrition; I48.20 Chronic atrial fibrillation, unspecified; Z68.42 Body mass index [BMI] 45.0-49.9, adult; N39.0 Urinary tract infection, site not specified; I50.33 Acute on chronic diastolic (congestive) heart failure; E78.5 Hyperlipidemia, unspecified; F03.90 Unspecified dementia, unspecified severity, without behavioral disturbance, psychotic disturbance, mood disturbance, and anxiety; I25.10 Atherosclerotic heart disease of native coronary artery without angina pectoris; E03.9 Hypothyroidism, unspecified; E78.00 Pure hypercholesterolemia, unspecified; Z79.899 Other long term (current) drug therapy; Z93.1 Gastrostomy status; I69.320 Aphasia following cerebral infarction; Z79.82 Long term (current) use of aspirin
CPT/HCPCS: 36415; 71045; 80048; 80053; 80061; 81003; 85025; 93005; 93306; 93970; 99285; J0696; J1650; J1940; J7040; A4315